=== PATIENT | male | born 1985 | race Caucasian/White ===

== ENCOUNTER 2024-03-14 06:51 | Emergency (ER) | payer BC ==
[2024-03-14] MEDS: Diphtheria,Pertussis(Acell),Tetanus Vaccine 0.5 ML Syringe IM ONE (07:28)
[2024-03-14] MEDS: Bacitracin Oint 1 GM U/D Packet TOP ONE (07:30)
[2024-03-14] MEDS: Lidocaine 1% 5 ML VIAL INJECT ONE ×2 (07:30→07:48)
[2024-03-14] MEDS: Lidocaine 1% 5 ML VIAL ONE (07:48)
== END 2024-03-14 08:30 | disposition home or self-care (01) ==
LOC: LL.ED 06:51
DX: S61.412A Laceration without foreign body of left hand, initial encounter (principal); Z23 Encounter for immunization; Z88.0 Allergy status to penicillin; Z91.030 Bee allergy status; Z87.891 Personal history of nicotine dependence; W26.8XXA Contact with other sharp object(s), not elsewhere classified, initial encounter
CPT/HCPCS: 12002; 90471; 90715; 99283; 99283-25; J3490